=== PATIENT | male | born 1995 | race Asian ===

== ENCOUNTER → 2018-06-22 09:11 | Outpatient (CLI) | payer BC, SELFPAY ==
[2018-06-24 11:36] LABS: Hep B Surface Antibodies Non Reactive (.); Mumps Antibody,IgG 84.8 AU/mL (Immune >10.9); V-Zoster IgG (Immunity) 515 index (Immune >165)
== END ==
PROVIDERS: Family Provider Family Medicine; PCP Family Medicine; Referring Provider Family Medicine; Visit Provider Family Medicine
DX: Z00.00 Encounter for general adult medical examination without abnormal findings (principal)
CPT/HCPCS: 36415; 86706; 86735; 86762; 86765; 86787

== ENCOUNTER → 2018-06-23 14:03 | Outpatient (CLI) | payer BC, SELFPAY ==
--- NOTE | 2018-06-23 | MISC_PTH ---
PATIENT: ARSALAN BOATENG LOC: [facility] U#:[id number] AGE/SX: 29/M ROOM: RE06/23/[address]: Dr. Pepe Hadley MD : 1995 BED: DIS: SPEC #: [id number] RECD: 06/23/18 14:00 STATUS: ROJAS HARJINDER #: [id number] SANDI: 06/23/18 00:[address]: Pepe Hadley DEPT: SURGICAL PATHOLOGY RECD BY: Calista Emanuel Tissues: Skin, NOS Procedures: PAS Fungus (control) Special Stain Group I Surgery Specimen Level IV HEADER OPERATION: Shave biopsy right mastoid PRE-OP DIAGNOSIS: Psoriasis TISSUE SUBMITTED: Right mastoid MICROSCOPIC DIAGNOSIS Skin lesion of right mastoid, shave biopsy: Consistent with psoriasiform dermatitis. AM:ely 07/07/18 COMMENT This case was seen in consultation with Dr. Chaney of [facility]. PAS stain is negative for fungal organisms. The differential diagnosis includes psoriasis and allergic contact dermatitis. Clinical correlation is suggested. The consultation report is viewable in patient's EMR. Case has been reviewed in consultation with Dr. Butler who concurs with the above diagnosis. IDC:[id number] MICROSCOPIC DESCRIPTION Slides are reviewed. GROSS DESCRIPTION Received in fixative is one container labeled with the patient's name and designated right mastoid. The specimen consists of a hair bearing weathers shaved biopsy of skin measuring 0.7 x 0.2 x 0.1 cm. The specimen is totally submitted in one cassette. / CE:rg 06/23/18 TC:3 CPT: 18441, 77489
== END ==
PROVIDERS: Family Provider Family Medicine; PCP Family Medicine; Referring Provider Family Medicine; Visit Provider Family Medicine
DX: L40.9 Psoriasis, unspecified (principal)
CPT/HCPCS: 88304; 88305; 88312

== ENCOUNTER → 2018-08-16 14:36 | Outpatient (CLI) | payer BC, SELFPAY ==
[2018-08-20 03:06] LABS: QNTFERON TB Mitogen Value > 10.00 IU/mL (.); QNTFERON TB1+ Ag Value 0.14 IU/mL (.); QNTFERON TB2+ Ag Value 0.09 IU/mL (.)
[2018-08-21 16:21] LABS: QNTIFERON TB Positive Criteria Negative (Negative)
== END ==
PROVIDERS: Family Provider Family Medicine; PCP Family Medicine; Referring Provider Family Medicine; Visit Provider Family Medicine
DX: Z11.1 Encounter for screening for respiratory tuberculosis (principal)
CPT/HCPCS: 36415; 86480

== ENCOUNTER → 2019-01-30 09:48 | Outpatient (CLI) | payer BC, SELFPAY ==
[2019-01-30 12:36] LABS: Hepatitis B Surface Antibody Reactive
== END ==
PROVIDERS: Family Provider Family Medicine; PCP Family Medicine; Visit Provider Family Medicine
DX: Z78.9 Other specified health status (principal)
CPT/HCPCS: 36415; 86706